=== PATIENT | female | born 1960 | race Caucasian/White ===

== ENCOUNTER 2018-03-06 02:43 | Outpatient (RCR) | payer OTHER, SELFPAY ==
[2018-03-06] MEDS: Normal Saline Flush 10 ML SYR IVP (08:00)
[2018-03-06 08:17] LABS: Abs Immature Grans 1.78 k/cumm (0.0-0.09); HCT 33.2 % (36.0-46.0); HGB 10.9 g/dL (12.0-15.5); Mean Corp. HGB Concentration 32.8 g/dL (32.0-36.0); Mean Corpuscular Hemoglobin 28.8 pg (27.0-33.0); Mean Corpuscular Volume 87.8 fL (80-95); Mean Platelet Volume 9.7 fL (8.0-11.0); Platelet Count 194 x1000/uL (130-400); RBC 3.78 m/cumm (4.00-5.20); RBC Distribution Width 16.5 % (11.7-14.6); White Blood Cell Count 12.75 k/cumm (4.4-10.8)
[2018-03-06 08:31] LABS: ALT 38 U/L (12-78); AST 19 U/L (15-37); Albumin 3.4 g/dL (3.4-5.0); Alkaline Phosphatase 115 U/L (46-116); Anion Gap 9.1 mmol/L (3-11); BUN 6 mg/dL (7-18); Bilirubin, Total 0.2 mg/dL (0.2-1.0); CO2 26.9 mmol/L (21.0-32.0); CREATININE 0.87 mg/dL (0.55-1.02); Calcium 8.7 mg/dL (8.5-10.1); Chloride 105 mmol/L (98-107); Glucose 189 mg/dL (70-100); Sodium 141 mmol/L (136-145); Total Protein 6.6 g/dL (6.4-8.2)
[2018-03-06 08:44] LABS: Cholesterol 123 mg/dL (50-200); HDL Cholesterol 26 mg/dL (40-60); LDL CHOLESTEROL 64 mg/dL (<100); Triglyceride 202 mg/dL (30-150)
[2018-03-06 08:53] LABS: Absolute Lymphocyte Count 0.77 k/cumm (1.2-3.4); Absolute Monocyte Count 0.64 k/cumm (0.11-0.7); Atypical Lymphocytes % 1
[2018-03-06 08:54] LABS: Absolute Basophil Count 0.26 k/cumm (0.0-0.2); Anisocytosis 1+; Diff Comment Manual Differential; Nucleated RBC 1 /100WBC; Polychromasia Present
[2018-03-06 10:31] LABS: Hemoglobin A1C 8.7 % (4.5-6.2)
[2018-03-20] MEDS: Normal Saline Flush 10 ML SYR IVP (08:55)
[2018-03-20 09:15] LABS: HGB 10.2 g/dL (12.0-15.5)
[2018-03-20 09:33] LABS: ALT 30 U/L (12-78); AST 20 U/L (15-37); Albumin 3.3 g/dL (3.4-5.0); Alkaline Phosphatase 108 U/L (46-116); Anion Gap 8.8 mmol/L (3-11); BUN 7 mg/dL (7-18); Bilirubin, Total 0.2 mg/dL (0.2-1.0); CO2 26.2 mmol/L (21.0-32.0); CREATININE 0.88 mg/dL (0.55-1.02); Calcium 8.7 mg/dL (8.5-10.1); Chloride 106 mmol/L (98-107); Cholesterol 120 mg/dL (50-200); Glucose 192 mg/dL (70-100); HDL Cholesterol 28 mg/dL (40-60); LDL CHOLESTEROL 68 mg/dL (<100); Potassium 4.2 mmol/L (3.5-5.1); Sodium 141 mmol/L (136-145); Total Protein 6.5 g/dL (6.4-8.2); Triglyceride 203 mg/dL (30-150)
[2018-03-20 09:55] LABS: Abs Immature Grans 1.41 k/cumm (0.0-0.09); HCT 31.6 % (36.0-46.0); Mean Corp. HGB Concentration 32.6 g/dL (32.0-36.0); Mean Corpuscular Hemoglobin 29.3 pg (27.0-33.0); Mean Corpuscular Volume 89.8 fL (80-95); Mean Platelet Volume 10.3 fL (8.0-11.0); Platelet Count 316 x1000/uL (130-400); RBC 3.52 m/cumm (4.00-5.20); RBC Distribution Width 18.4 % (11.7-14.6); White Blood Cell Count 12.43 k/cumm (4.4-10.8)
[2018-03-20 10:24] LABS: Absolute Lymphocyte Count 0.37 k/cumm (1.2-3.4); Absolute Monocyte Count 1.24 k/cumm (0.11-0.7); Absolute Neutrophil Count 10.19 k/cumm (1.2-6.7)
[2018-03-20 10:25] LABS: Anisocytosis 2+; Diff Comment MAN; Polychromasia Present
== END 2018-03-24 ==
LOC: INF 07:40
PROVIDERS: Visit Provider Internal Medicine Medical Oncology
DX: C50.412 Malignant neoplasm of upper-outer quadrant of left female breast (principal); Z17.0 Estrogen receptor positive status [ER+]; E78.5 Hyperlipidemia, unspecified; E11.9 Type 2 diabetes mellitus without complications; Z45.2 Encounter for adjustment and management of vascular access device
CPT/HCPCS: 36591; 80053; 80061; 83721; 83036; 85018; 85025

== ENCOUNTER 2018-04-17 08:35 | Outpatient (RCR) | payer OTHER, SELFPAY ==
[2018-03-28] MEDS: Normal Saline Flush 10 ML SYR IVP (09:40)
[2018-03-28 10:14] LABS: Abs Immature Grans 0.03 k/cumm (0.0-0.09); Absolute Basophil Count 0.13 k/cumm (0.0-0.2); Absolute Eosinophil Count 0.01 k/cumm (0.0-0.7); Absolute Lymphocyte Count 0.57 k/cumm (1.2-3.4); Absolute Monocyte Count 1.07 k/cumm (0.11-0.7); Basophils % 1.5; Eosinophils % 0.1; HCT 32.4 % (36.0-46.0); HGB 10.4 g/dL (12.0-15.5); Immature Grans % 0.3; Lymphocytes % 6.5; Mean Corp. HGB Concentration 32.1 g/dL (32.0-36.0); Mean Corpuscular Volume 90.3 fL (80-95); Mean Platelet Volume 9.7 fL (8.0-11.0); Monocytes % 12.3; Neutrophils % 79.3; Platelet Count 635 x1000/uL (130-400); RBC 3.59 m/cumm (4.00-5.20); RBC Distribution Width 19.2 % (11.7-14.6); White Blood Cell Count 8.71 k/cumm (4.4-10.8)
[2018-03-28 10:31] LABS: Anisocytosis 3+; Diff Comment RBC Morph Reviewed
[2018-03-28 10:32] LABS: Basophilic Stippling Present; Polychromasia Present
[2018-03-28 10:42] LABS: ALT 35 U/L (12-78); AST 22 U/L (15-37); Albumin 3.2 g/dL (3.4-5.0); Alkaline Phosphatase 98 U/L (46-116); Anion Gap 9.1 mmol/L (3-11); BUN 7 mg/dL (7-18); Bilirubin, Total 0.2 mg/dL (0.2-1.0); CO2 26.9 mmol/L (21.0-32.0); CREATININE 0.82 mg/dL (0.55-1.02); Chloride 104 mmol/L (98-107); Glucose 157 mg/dL (70-100); Potassium 4.1 mmol/L (3.5-5.1); Sodium 140 mmol/L (136-145); Total Protein 6.6 g/dL (6.4-8.2)
[2018-04-03] MEDS: Normal Saline Flush 10 ML SYR IVP (07:25)
[2018-04-03 07:44] LABS: Abs Immature Grans 0.03 k/cumm (0.0-0.09); Absolute Basophil Count 0.13 k/cumm (0.0-0.2); Absolute Eosinophil Count 0.25 k/cumm (0.0-0.7); Absolute Monocyte Count 0.73 k/cumm (0.11-0.7); Absolute Neutrophil Count 6.19 k/cumm (1.2-6.7); Basophils % 1.7; Eosinophils % 3.2; HCT 33.1 % (36.0-46.0); HGB 10.7 g/dL (12.0-15.5); Immature Grans % 0.4; Lymphocytes % 5.2; Mean Corp. HGB Concentration 32.3 g/dL (32.0-36.0); Mean Corpuscular Hemoglobin 28.9 pg (27.0-33.0); Mean Corpuscular Volume 89.5 fL (80-95); Mean Platelet Volume 9.6 fL (8.0-11.0); Monocytes % 9.4; Neutrophils % 80.1; Platelet Count 395 x1000/uL (130-400); White Blood Cell Count 7.73 k/cumm (4.4-10.8)
[2018-04-03 07:58] LABS: ALT 36 U/L (12-78); AST 27 U/L (15-37); Albumin 3.2 g/dL (3.4-5.0); Alkaline Phosphatase 103 U/L (46-116); Anion Gap 6.7 mmol/L (3-11); BUN 10 mg/dL (7-18); Bilirubin, Total 0.4 mg/dL (0.2-1.0); CO2 28.3 mmol/L (21.0-32.0); CREATININE 0.71 mg/dL (0.55-1.02); Calcium 8.8 mg/dL (8.5-10.1); Chloride 104 mmol/L (98-107); Glucose 188 mg/dL (70-100); Potassium 4.2 mmol/L (3.5-5.1); Sodium 139 mmol/L (136-145); Total Protein 6.9 g/dL (6.4-8.2)
[2018-04-10] MEDS: Normal Saline Flush 10 ML SYR IVP (09:20)
[2018-04-10 09:34] LABS: Abs Immature Grans 0.02 k/cumm (0.0-0.09); Absolute Basophil Count 0.08 k/cumm (0.0-0.2); Absolute Lymphocyte Count 0.45 k/cumm (1.2-3.4); Absolute Monocyte Count 0.72 k/cumm (0.11-0.7); Absolute Neutrophil Count 4.18 k/cumm (1.2-6.7); Basophils % 1.3; Eosinophils % 8.4; HCT 32.9 % (36.0-46.0); HGB 10.6 g/dL (12.0-15.5); Immature Grans % 0.3; Lymphocytes % 7.6; Mean Corp. HGB Concentration 32.2 g/dL (32.0-36.0); Mean Corpuscular Hemoglobin 29.5 pg (27.0-33.0); Mean Corpuscular Volume 91.6 fL (80-95); Mean Platelet Volume 9.6 fL (8.0-11.0); Monocytes % 12.1; Neutrophils % 70.3; Platelet Count 401 x1000/uL (130-400); RBC 3.59 m/cumm (4.00-5.20); RBC Distribution Width 19.7 % (11.7-14.6); White Blood Cell Count 5.95 k/cumm (4.4-10.8)
[2018-04-10 09:51] LABS: ALT 34 U/L (12-78); AST 20 U/L (15-37); Albumin 3.2 g/dL (3.4-5.0); Alkaline Phosphatase 99 U/L (46-116); Anion Gap 7.3 mmol/L (3-11); BUN 10 mg/dL (7-18); Bilirubin, Total 0.3 mg/dL (0.2-1.0); CO2 27.7 mmol/L (21.0-32.0); CREATININE 0.84 mg/dL (0.55-1.02); Chloride 104 mmol/L (98-107); Glucose 189 mg/dL (70-100); Potassium 4.3 mmol/L (3.5-5.1); Sodium 139 mmol/L (136-145); Total Protein 6.9 g/dL (6.4-8.2)
[2018-04-17] MEDS: Normal Saline Flush 10 ML SYR IVP (08:50)
[2018-04-17 09:19] LABS: Abs Immature Grans 0.03 k/cumm (0.0-0.09); Absolute Basophil Count 0.07 k/cumm (0.0-0.2); Absolute Eosinophil Count 0.35 k/cumm (0.0-0.7); Absolute Lymphocyte Count 0.67 k/cumm (1.2-3.4); Absolute Neutrophil Count 4.31 k/cumm (1.2-6.7); Basophils % 1.2; Eosinophils % 5.9; HCT 33.1 % (36.0-46.0); HGB 10.6 g/dL (12.0-15.5); Immature Grans % 0.5; Lymphocytes % 11.3; Mean Corpuscular Hemoglobin 29.5 pg (27.0-33.0); Mean Corpuscular Volume 92.2 fL (80-95); Mean Platelet Volume 9.4 fL (8.0-11.0); Monocytes % 8.4; Neutrophils % 72.7; Platelet Count 447 x1000/uL (130-400); RBC 3.59 m/cumm (4.00-5.20); RBC Distribution Width 19.5 % (11.7-14.6); White Blood Cell Count 5.93 k/cumm (4.4-10.8)
[2018-04-17 09:42] LABS: ALT 36 U/L (12-78); AST 26 U/L (15-37); Albumin 3.2 g/dL (3.4-5.0); Alkaline Phosphatase 94 U/L (46-116); Anion Gap 9.3 mmol/L (3-11); BUN 9 mg/dL (7-18); Bilirubin, Total 0.3 mg/dL (0.2-1.0); CO2 28.7 mmol/L (21.0-32.0); CREATININE 0.79 mg/dL (0.55-1.02); Calcium 9.4 mg/dL (8.5-10.1); Chloride 103 mmol/L (98-107); Glucose 206 mg/dL (70-100); Potassium 3.8 mmol/L (3.5-5.1); Sodium 141 mmol/L (136-145); Total Protein 6.5 g/dL (6.4-8.2)
== END 2018-04-23 23:59 | disposition home or self-care (01) ==
LOC: INF 08:35
PROVIDERS: Visit Provider Internal Medicine Medical Oncology
DX: C50.412 Malignant neoplasm of upper-outer quadrant of left female breast (principal); Z17.0 Estrogen receptor positive status [ER+]; Z45.2 Encounter for adjustment and management of vascular access device
CPT/HCPCS: 36591; 80053; 85025

== ENCOUNTER 2018-05-22 01:24 | Outpatient (RCR) | payer OTHER, SELFPAY ==
[2018-04-24] MEDS: Normal Saline Flush 10 ML SYR 30 ML IVP (09:25)
[2018-04-24 09:51] LABS: Abs Immature Grans 0.02 k/cumm (0.0-0.09); Absolute Basophil Count 0.06 k/cumm (0.0-0.2); Absolute Eosinophil Count 0.17 k/cumm (0.0-0.7); Absolute Lymphocyte Count 0.54 k/cumm (1.2-3.4); Absolute Monocyte Count 0.45 k/cumm (0.11-0.7); Absolute Neutrophil Count 3.52 k/cumm (1.2-6.7); Basophils % 1.3; Eosinophils % 3.6; HCT 34.4 % (36.0-46.0); HGB 11.1 g/dL (12.0-15.5); Immature Grans % 0.4; Lymphocytes % 11.3; Mean Corp. HGB Concentration 32.3 g/dL (32.0-36.0); Mean Corpuscular Hemoglobin 29.8 pg (27.0-33.0); Mean Corpuscular Volume 92.5 fL (80-95); Mean Platelet Volume 9.8 fL (8.0-11.0); Monocytes % 9.5; Neutrophils % 73.9; Platelet Count 430 x1000/uL (130-400); RBC 3.72 m/cumm (4.00-5.20); RBC Distribution Width 19.2 % (11.7-14.6); White Blood Cell Count 4.76 k/cumm (4.4-10.8)
[2018-04-24 10:06] LABS: ALT 39 U/L (12-78); AST 23 U/L (15-37); Albumin 3.2 g/dL (3.4-5.0); Alkaline Phosphatase 101 U/L (46-116); Anion Gap 7.7 mmol/L (3-11); BUN 11 mg/dL (7-18); Bilirubin, Total 0.3 mg/dL (0.2-1.0); CO2 27.3 mmol/L (21.0-32.0); CREATININE 0.84 mg/dL (0.55-1.02); Calcium 9.2 mg/dL (8.5-10.1); Chloride 104 mmol/L (98-107); Glucose 256 mg/dL (70-100); Potassium 4.1 mmol/L (3.5-5.1); Sodium 139 mmol/L (136-145); Total Protein 6.5 g/dL (6.4-8.2)
[2018-05-01] MEDS: Normal Saline Flush 10 ML SYR IVP (11:25)
[2018-05-01 11:49] LABS: Abs Immature Grans 0.02 k/cumm (0.0-0.09); Absolute Basophil Count 0.04 k/cumm (0.0-0.2); Absolute Eosinophil Count 0.07 k/cumm (0.0-0.7); Absolute Lymphocyte Count 0.69 k/cumm (1.2-3.4); Absolute Monocyte Count 0.33 k/cumm (0.11-0.7); Absolute Neutrophil Count 3.35 k/cumm (1.2-6.7); Basophils % 0.9; Eosinophils % 1.6; HCT 35.2 % (36.0-46.0); HGB 11.4 g/dL (12.0-15.5); Immature Grans % 0.4; Lymphocytes % 15.3; Mean Corp. HGB Concentration 32.4 g/dL (32.0-36.0); Mean Corpuscular Hemoglobin 30.2 pg (27.0-33.0); Mean Corpuscular Volume 93.1 fL (80-95); Mean Platelet Volume 9.4 fL (8.0-11.0); Monocytes % 7.3; Neutrophils % 74.5; Platelet Count 386 x1000/uL (130-400); RBC 3.78 m/cumm (4.00-5.20); RBC Distribution Width 18.7 % (11.7-14.6)
[2018-05-01 12:00] LABS: ALT 41 U/L (12-78); AST 23 U/L (15-37); Albumin 3.3 g/dL (3.4-5.0); Alkaline Phosphatase 95 U/L (46-116); Anion Gap 6.2 mmol/L (3-11); BUN 10 mg/dL (7-18); Bilirubin, Total 0.3 mg/dL (0.2-1.0); CO2 27.8 mmol/L (21.0-32.0); CREATININE 0.79 mg/dL (0.55-1.02); Calcium 9.2 mg/dL (8.5-10.1); Chloride 106 mmol/L (98-107); Glucose 148 mg/dL (70-100); Potassium 4.2 mmol/L (3.5-5.1); Sodium 140 mmol/L (136-145); Total Protein 6.6 g/dL (6.4-8.2)
[2018-05-08] MEDS: Normal Saline Flush 10 ML SYR IVP (10:00)
[2018-05-08 10:20] LABS: Abs Immature Grans 0.02 k/cumm (0.0-0.09); Absolute Basophil Count 0.03 k/cumm (0.0-0.2); Absolute Eosinophil Count 0.05 k/cumm (0.0-0.7); Absolute Lymphocyte Count 0.66 k/cumm (1.2-3.4); Absolute Monocyte Count 0.29 k/cumm (0.11-0.7); Absolute Neutrophil Count 3.14 k/cumm (1.2-6.7); Basophils % 0.7; Eosinophils % 1.2; HCT 35.5 % (36.0-46.0); HGB 11.4 g/dL (12.0-15.5); Immature Grans % 0.5; Lymphocytes % 15.8; Mean Corp. HGB Concentration 32.1 g/dL (32.0-36.0); Mean Corpuscular Hemoglobin 29.8 pg (27.0-33.0); Mean Corpuscular Volume 92.9 fL (80-95); Mean Platelet Volume 9.7 fL (8.0-11.0); Monocytes % 6.9; Neutrophils % 74.9; Platelet Count 401 x1000/uL (130-400); RBC 3.82 m/cumm (4.00-5.20); White Blood Cell Count 4.19 k/cumm (4.4-10.8)
[2018-05-08 10:31] LABS: ALT 42 U/L (12-78); AST 20 U/L (15-37); Albumin 3.5 g/dL (3.4-5.0); Alkaline Phosphatase 85 U/L (46-116); Anion Gap 9.1 mmol/L (3-11); BUN 11 mg/dL (7-18); Bilirubin, Total 0.3 mg/dL (0.2-1.0); CO2 26.9 mmol/L (21.0-32.0); CREATININE 0.77 mg/dL (0.55-1.02); Calcium 9.3 mg/dL (8.5-10.1); Chloride 104 mmol/L (98-107); Glucose 178 mg/dL (70-100); Potassium 4.3 mmol/L (3.5-5.1); Sodium 140 mmol/L (136-145); Total Protein 6.7 g/dL (6.4-8.2)
[2018-05-15] MEDS: Normal Saline Flush 10 ML SYR 30 ML IVP (09:50)
[2018-05-15 10:01] LABS: Abs Immature Grans 0.01 k/cumm (0.0-0.09); Absolute Basophil Count 0.03 k/cumm (0.0-0.2); Absolute Eosinophil Count 0.05 k/cumm (0.0-0.7); Absolute Lymphocyte Count 0.71 k/cumm (1.2-3.4); Absolute Monocyte Count 0.87 k/cumm (0.11-0.7); Absolute Neutrophil Count 3.87 k/cumm (1.2-6.7); Basophils % 0.5; Eosinophils % 0.9; HCT 36.4 % (36.0-46.0); HGB 11.8 g/dL (12.0-15.5); Immature Grans % 0.2; Lymphocytes % 12.8; Mean Corp. HGB Concentration 32.4 g/dL (32.0-36.0); Mean Corpuscular Hemoglobin 29.9 pg (27.0-33.0); Mean Corpuscular Volume 92.4 fL (80-95); Mean Platelet Volume 9.5 fL (8.0-11.0); Monocytes % 15.7; Neutrophils % 69.9; Platelet Count 362 x1000/uL (130-400); RBC 3.94 m/cumm (4.00-5.20); White Blood Cell Count 5.54 k/cumm (4.4-10.8)
[2018-05-15 10:13] LABS: ALT 38 U/L (12-78); AST 19 U/L (15-37); Albumin 3.3 g/dL (3.4-5.0); Alkaline Phosphatase 92 U/L (46-116); Anion Gap 7.9 mmol/L (3-11); BUN 9 mg/dL (7-18); Bilirubin, Total 0.3 mg/dL (0.2-1.0); CO2 28.1 mmol/L (21.0-32.0); Calcium 9.2 mg/dL (8.5-10.1); Chloride 104 mmol/L (98-107); Glucose 174 mg/dL (70-100); Potassium 3.9 mmol/L (3.5-5.1); Sodium 140 mmol/L (136-145); Total Protein 6.6 g/dL (6.4-8.2)
== END 2018-05-24 23:59 | disposition home or self-care (01) ==
LOC: INF 01:24
PROVIDERS: Visit Provider Internal Medicine Medical Oncology
DX: C50.412 Malignant neoplasm of upper-outer quadrant of left female breast (principal); Z17.0 Estrogen receptor positive status [ER+]
CPT/HCPCS: 36591; 80053; 85025

== ENCOUNTER 2018-06-16 00:42 | Outpatient (RCR) | payer OTHER, SELFPAY ==
[2018-06-01] MEDS: Normal Saline Flush 10 ML SYR IVP (08:55)
[2018-06-01 09:22] LABS: Abs Immature Grans 0.01 k/cumm (0.0-0.09); Absolute Basophil Count 0.03 k/cumm (0.0-0.2); Absolute Eosinophil Count 0.15 k/cumm (0.0-0.7); Absolute Lymphocyte Count 0.68 k/cumm (1.2-3.4); Absolute Neutrophil Count 3.72 k/cumm (1.2-6.7); Basophils % 0.6; Eosinophils % 2.9; HCT 39.7 % (36.0-46.0); HGB 12.7 g/dL (12.0-15.5); Immature Grans % 0.2; Lymphocytes % 13.1; Mean Corpuscular Hemoglobin 29.2 pg (27.0-33.0); Mean Corpuscular Volume 91.3 fL (80-95); Mean Platelet Volume 9.7 fL (8.0-11.0); Monocytes % 11.6; Neutrophils % 71.6; Platelet Count 390 x1000/uL (130-400); RBC 4.35 m/cumm (4.00-5.20); RBC Distribution Width 15.6 % (11.7-14.6); White Blood Cell Count 5.19 k/cumm (4.4-10.8)
[2018-06-01 09:39] LABS: ALT 38 U/L (12-78); AST 24 U/L (15-37); Albumin 3.4 g/dL (3.4-5.0); Alkaline Phosphatase 97 U/L (46-116); Anion Gap 9.5 mmol/L (3-11); BUN 9 mg/dL (7-18); Bilirubin, Total 0.3 mg/dL (0.2-1.0); CO2 27.5 mmol/L (21.0-32.0); CREATININE 0.78 mg/dL (0.55-1.02); Calcium 9.5 mg/dL (8.5-10.1); Chloride 102 mmol/L (98-107); Glucose 180 mg/dL (70-100); Potassium 4.2 mmol/L (3.5-5.1); Sodium 139 mmol/L (136-145); Total Protein 6.9 g/dL (6.4-8.2)
== END 2018-06-23 23:59 | disposition home or self-care (01) ==
LOC: INF 00:42
PROVIDERS: Visit Provider Internal Medicine Medical Oncology
DX: C50.412 Malignant neoplasm of upper-outer quadrant of left female breast (principal); Z17.0 Estrogen receptor positive status [ER+]; Z45.2 Encounter for adjustment and management of vascular access device
CPT/HCPCS: 36591; 80053; 85025

== ENCOUNTER 2018-06-29 02:22 | Outpatient (RCR) | payer OTHER, SELFPAY | END 2018-07-24 23:59 | disposition home or self-care (01) | LOC: INF 02:22 | PROVIDERS: Visit Provider Internal Medicine Hematology & Oncology | DX: R69 Illness, unspecified (principal) ==

== ENCOUNTER 2018-08-24 01:37 | Outpatient (RCR) | payer OTHER, SELFPAY ==
[2018-08-24] MEDS: Normal Saline Flush 10 ML SYR IVP (12:40)
[2018-08-24] MEDS: Heparin 500 UNITS/5 ML SYRINGE IV (12:40)
[2018-08-24 13:10] LABS: Abs Immature Grans 0.01 k/cumm (0.0-0.09); Absolute Basophil Count 0.02 k/cumm (0.0-0.2); Absolute Lymphocyte Count 0.77 k/cumm (1.2-3.4); Absolute Monocyte Count 0.46 k/cumm (0.11-0.7); Absolute Neutrophil Count 3.91 k/cumm (1.2-6.7); Basophils % 0.4; Eosinophils % 1.9; HCT 40.1 % (36.0-46.0); Immature Grans % 0.2; Lymphocytes % 14.6; Mean Corp. HGB Concentration 32.4 g/dL (32.0-36.0); Mean Corpuscular Hemoglobin 27.8 pg (27.0-33.0); Mean Corpuscular Volume 85.7 fL (80-95); Mean Platelet Volume 9.7 fL (8.0-11.0); Monocytes % 8.7; Neutrophils % 74.2; Platelet Count 345 x1000/uL (130-400); RBC 4.68 m/cumm (4.00-5.20); RBC Distribution Width 15.9 % (11.7-14.6); White Blood Cell Count 5.27 k/cumm (4.4-10.8)
[2018-08-24 13:21] LABS: ALT 27 U/L (12-78); AST 17 U/L (15-37); Albumin 3.4 g/dL (3.4-5.0); Alkaline Phosphatase 100 U/L (46-116); Anion Gap 9.1 mmol/L (3-11); BUN 11 mg/dL (7-18); Bilirubin, Total 0.2 mg/dL (0.2-1.0); CO2 27.9 mmol/L (21.0-32.0); CREATININE 0.85 mg/dL (0.55-1.02); Calcium 9.6 mg/dL (8.5-10.1); Chloride 105 mmol/L (98-107); Glucose 201 mg/dL (70-100); Potassium 4.2 mmol/L (3.5-5.1); Sodium 142 mmol/L (136-145); Total Protein 7.1 g/dL (6.4-8.2)
== END 2018-08-24 23:59 | disposition home or self-care (01) ==
LOC: INF 01:37
PROVIDERS: Internal Medicine Medical Oncology; Visit Provider Internal Medicine Hematology & Oncology
DX: C50.412 Malignant neoplasm of upper-outer quadrant of left female breast (principal); Z17.0 Estrogen receptor positive status [ER+]; Z45.2 Encounter for adjustment and management of vascular access device
CPT/HCPCS: 36591; 80053; 85025